=== PATIENT | male | born 1995 | race Caucasian/White ===

== ENCOUNTER 2016-07-09 23:00 | Emergency (ER) | payer OTHER, BC ==
[2016-07-09 23:14] LABS: EOSINOPHIL (%) 0.3 % (0-5); HEMATOCRIT 45.6 % (38.0-50.0); IMMATURE GRANULOCYTE (%) 0.3 % (0.0-0.7); INSTRUMENT ABS NEUTROPHIL CT 4.8 K/uL; LYMPHOCYTE COUNT 2.1 K/uL (1.0-2.8); MCH 31.5 PG (29.0-34.0); MCHC 34.6 G/DL (30.0-36.0); MCV 90.8 FL (86-99); MEAN PLAT.VOLUME 9.3 uM^3 (9.0-12.4); MONOCYTE (%) 7.6 % (3-12); MONOCYTE COUNT 0.6 K/uL (0-0.8); NEUTROPHIL (%) 63.3 % (45-76); NEUTROPHIL COUNT 4.8 K/uL (1.8-6.4); PLATELET COUNT 342 K/uL (156-360); RBC DIS.WIDTH-CV 12.1 % (11.8-14.6); RED BLOOD COUNT 5.02 M/uL (4.00-5.50); WHITE BLOOD COUNT 7.5 K/uL (4.1-10.2)
[2016-07-09 23:23] LABS: AMYLASE 63 IU/L (1-118); CHLORIDE 107 mEq/L (99-109); POTASSIUM 3.7 mEq/L (3.7-5.4); SODIUM 145 mEq/L (136-147)
[2016-07-09 23:24] LABS: GLUCOSE 118 mg/dL (70-99)
[2016-07-09 23:26] LABS: ANION GAP 15 MEQ/L (2-14)
[2016-07-09 23:28] LABS: GFR ESTIMATE (CALCULATED) > 59 mL/min/; SERUM ETHYL ALCOHOL 21 mg/dL
[2016-07-09 23:29] LABS: UREA NITROGEN (BUN) 11 mg/dL (9-23)
[2016-07-09 23:31] LABS: LIPASE 21 U/L (1.0-51.0)
[2016-07-10] MEDS ORDERED: MOTRIN600 MG PO (00:37)
== END 2016-07-10 01:19 | disposition home or self-care (01) ==
LOC: TRA 23:00
PROVIDERS: Emergency Medicine
DX: S06.0X9A Concussion with loss of consciousness of unspecified duration, initial encounter (principal); S00.81XA Abrasion of other part of head, initial encounter; S00.83XA Contusion of other part of head, initial encounter; F10.99 Alcohol use, unspecified with unspecified alcohol-induced disorder; G89.29 Other chronic pain; V48.5XXA Car driver injured in noncollision transport accident in traffic accident, initial encounter
CPT/HCPCS: 70450; 70486; 71010; 72125; 80048; 81003; 82150; 83690; 85025; 86900; 86901; 93005; 99281; 99285; G0480; J2270; J2405